=== PATIENT | female | born 1930 | race Caucasian/White ===

== ENCOUNTER 2019-08-07 12:42 | Emergency (ER) | payer OTHER ==
[~2019-08-07] VITALS: Ht 157.5 cm; Wt 47.0 kg
[~2019-08-07 12:42] MED LIST: METO-335 PO
[2019-08-07 12:45] VITALS: Ht 157.5 cm; Wt 47.0 kg
[2019-08-07] MEDS ORDERED: KETOROLAC 15 MG INJ IV ONE (13:00)
[2019-08-07] MEDS ORDERED: morphine 4 MG/ML VIAL IV ONE (13:00)
[2019-08-07] MEDS ORDERED: PROPOFOL 200 MG INJ IV ONE ×2 (16:00→17:30)
[2019-08-07 17:45] VITALS: BP 167/83; PULSE 60; RESP 16
== END 2019-08-07 17:45 | disposition home or self-care (01) ==
LOC: E/R 12:42
DX: S43.005A Unspecified dislocation of left shoulder joint, initial encounter (principal); W01.0XXA Fall on same level from slipping, tripping and stumbling without subsequent striking against object, initial encounter; Y92.009 Unspecified place in unspecified non-institutional (private) residence as the place of occurrence of the external cause
CPT/HCPCS: 23650; 73030; 73060; 73080; 73110; 73130; 94770; 96374; 96375; 99285; J1885; J2270; 93005